=== PATIENT | male | born 1965 | race Caucasian/White ===

== ENCOUNTER 2020-11-10 14:55 | Emergency (ER) | payer BC ==
--- NOTE | 2020-11-10 15:02 | EDM.PDOC ---
ED HPI GENERAL MEDICAL PROBLEM - General Chief Complaint: Behavioral/Psych Stated Complaint: MENTAL HEALTH Time Seen by Provider: 11/10/20 14:56 Source of Information: Reports: Patient History Limitations: Reports: No Limitations - History of Present Illness INITIAL COMMENTS - FREE TEXT/NARRATIVE: HISTORY AND PHYSICAL: History of present illness: Patient is a 55-year-old male who presents emergency room today with concern of suicidal ideation/suicidal attempt with the plan. Patient states yesterday at 11 AM, he took "a large handful "of Ambien. Patient states that he fell asleep and he woke up multiple hours later. Patient states that he has continued to have suicidal ideation and has been working on a different plan. Patient states the day he was going to park his car in the garage and shut the garage door and keep the car running. Patient states he was in the process of getting this started when his son called him. Patient states that he broke down and asked his son for help. Patient states that his son brought him to his daughter's house who drove him to the emergency room after calling the suicide hotline. Patient states that he has been having suicidal ideation after he was let go from a job at the end of September. Patient states he feels worthless and a burden to his family as to he has no fpc saved and now is no longer making an income. Patient denies any history of suicidal ideation, anxiety, or depression and states he has never had any issues like this in his past. Patient states he has a history of type 2 diabetes but denies any other health history. Patient denies fever, chills, chest pain, shortness of breath, or cough. Denies headache, neck stiff ness, change in vision, syncope, or near syncope. Denies nausea, vomiting, abdominal pain, diarrhea, constipation, or dysuria. Has not noted any blood in urine or stool. Patient has been eating and drinking appropriately. Review of systems: As per history of present illness and below otherwise all systems reviewed and negative. Past medical history: As per history of present illness and as reviewed below otherwise noncontributory. Surgical history: As per history of present illness and as reviewed below otherwise noncontributory. Social history: See social history for further information Family history: As per history of present illness and as reviewed below otherwise noncontributory. Physical exam: General: Patient is alert, oriented, and in no acute distress. Patient sitting comfortably on exam table. Vitals stable and reviewed by me. HEENT: Atraumatic, normocephalic, pupils equal and reactive bilaterally, negative for conjunctival pallor or scleral icterus, mucous membranes moist, TMs normal bilaterally, throat clear, neck supple, nontender, trachea midline. No drooling or trismus noted. No meningeal signs. No hot potato voice noted. Lungs: Clear to auscultation, breath sounds equal bilaterally, chest nontender. Heart: S1S2, regular rate and rhythm without overt murmur Abdomen: Soft, nondistended, nontender. Negative for masses or hepatosplenomegaly. Negative for costovertebral tenderness. Pelvis: Stable nontender. Genitourinary: Deferred. Rectal: Deferred. Skin: Intact, warm, dry. No lesions or rashes noted. Extremities: Atraumatic, negative for cords or calf pain. Neurovascular unremarkable. Neuro: Awake, alert, oriented. Cranial nerves II through XII unremarkable. Cerebellum unremarkable. Motor and sensory unremarkable throughout. Exam nonfocal. Notes: Involuntary hold paperwork filled out upon arrival. [facility] does not have any beds available. Did call and speak to Dr. Oma Castillo, psychiatry at [facility] in [place], and thoroughly discussed patient's case. Accepting of transfer. EMS arranged. EMS is delayed until midnight. Diagnostics: CBC, CMP, UA, UDS, EKG, TSH, Mg, Salicylate, Ethanol, Acetaminophen, COVID Therapeutics: None Impression: Suicidal ideation with a plan Suicide attempt Plan: Transfer to Dr. Oma Castillo via EMS at [facility] Definitive disposition and diagnosis as appropriate pending reevaluation and review of above. - Related Data Allergies Allergy/AdvReac Type Severity Reaction Status Date / Time No Known Allergies Allergy Verified 11/10/20 15:27 Home Meds: Home Meds Insulin Aspart [NovoLOG] 1 dose SUBCUT ASDIRECTED 11/10/20 [History] Semaglutide [Ozempic] 1 dose SUBCUT ASDIRECTED 11/10/20 [History] ED ROS GENERAL - Review of Systems Review Of Systems: Comprehensive ROS is negative, except as noted in HPI. ED EXAM, GENERAL - Physical Exam Exam: See Below (see dictation) Course - Vital Signs Last Recorded V/S: Last Vital Signs Temp 96.9 F 11/10/20 22:50 Pulse 90 11/10/20 22:50 Resp 18 11/10/20 22:50 BP 145/69 H 11/10/20 22:50 Pulse Ox 96 11/10/20 22:50 - Orders/Labs/Meds Labs: Laboratory Tests 11/10/20 11/10/20 11/10/20 Range/Units 15:50 15:50 16:25 WBC 8.14 (4.0-11.0) K/uL RBC 4.64 (4.50-5.90) M/uL Hgb 15.0 (13.0-17.0) g/dL Hct 43.5 (38.0-50.0) % MCV 93.8 (80.0-98.0) fL MCH 32.3 H (27.0-32.0) pg MCHC 34.5 (31.0-37.0) g/dL RDW Std Deviation 42.6 (28.0-62.0) fl RDW Coeff of Lyric 13 (11.0-15.0) % Plt Count 228 (150-400) K/uL MPV 8.90 (7.40-12.00) fL Neut % (Auto) 62.8 (48.0-80.0) % Lymph % (Auto) 27.3 (16.0-40.0) % [place] % (Auto) 8.8 (0.0-15.0) % Eos % (Auto) 0.9 (0.0-7.0) % Baso % (Auto) 0.2 (0.0-1.5) % Neut # (Auto) 5.1 (1.4-5.7) K/uL Lymph # (Auto) 2.2 (0.6-2.4) K/uL [place] # (Auto) 0.7 (0.0-0.8) K/uL Eos # (Auto) 0.1 (0.0-0.7) K/uL Baso # (Auto) 0.0 (0.0-0.1) K/uL Nucleated RBC % 0.0 /100WBC Nucleated RBCs # 0 K/uL Sodium 139 (136-148) mmol/L Potassium 3.7 (3.5-5.1) mmol/L Chloride 102 (98-107) mmol/L Carbon Dioxide 20.0 L (21.0-32.0) mmol/L BUN 13 (7.0-18.0) mg/dL Creatinine 1.0 (0.8-1.3) mg/dL Est Cr Clr Drug Dosing 107.90 mL/min Estimated GFR (MDRD) > 60.0 ml/min Glucose 167 H (74-106) mg/dL Calcium 9.2 (8.5-10.1) mg/dL Magnesium 2.1 (1.8-2.4) mg/dL Total Bilirubin 0.6 (0.2-1.0) mg/dL AST 22 (15-37) IU/L ALT 26 (14-63) IU/L Alkaline Phosphatase 59 (46-116) U/L Total Protein 7.3 (6.4-8.2) g/dL Albumin 3.9 (3.4-5.0) g/dL Globulin 3.4 (2.6-4.0) g/dL Albumin/Globulin Ratio 1.1 (0.9-1.6) TSH 3rd Generation 0.74 (0.36-3.74) uIU/mL Urine Color YELLOW Urine Appearance HAZY Urine pH 5.5 (5.0-8.0) Ur Specific [place] >= 1.030 (1.001-1.035) Urine Protein NEGATIVE (NEGATIVE) mg/dL Urine Glucose (UA) NEGATIVE (NEGATIVE) mg/dL Urine Ketones 40 H (NEGATIVE) mg/dL Urine Occult Blood NEGATIVE (NEGATIVE) Urine Nitrite NEGATIVE (NEGATIVE) Urine Bilirubin MODERATE H (NEGATIVE) Urine Ictotest NEGATIVE Urine Urobilinogen 1.0 (<2.0) EU/dL Ur Leukocyte Esterase NEGATIVE (NEGATIVE) Urine RBC 0-2 (0-2/HPF) Urine WBC 0-2 (0-5/HPF) Ur Epithelial Cells FEW (NONE-FEW) Urine Bacteria 1+ H (NEGATIVE) Urine Mucus LIGHT (NONE-MOD) Salicylates 2.0 (0-20) mg/dL Urine Opiates Screen (NEGATIVE) Ur Oxycodone Screen (NEGATIVE) Urine Methadone Screen (NEGATIVE) Acetaminophen <2.0 ug/mL Ur Barbiturates Screen (NEGATIVE) Ur Phencyclidine Scrn (NEGATIVE) Ur Amphetamine Screen (NEGATIVE) U Methamphetamines Scrn (NEGATIVE) U Benzodiazepines Scrn (NEGATIVE) U Cocaine Metab Screen (NEGATIVE) U Marijuana (THC) Screen (NEGATIVE) Ethyl Alcohol 3 mg/dL Influenza Type A RNA (NEGATIVE) Influenza Type B RNA (NEGATIVE) SARS-CoV-2 RNA ([place]) (NEGATIVE) 11/10/20 11/10/20 Range/Units 16:25 16:40 WBC (4.0-11.0) K/uL RBC (4.50-5.90) M/uL Hgb (13.0-17.0) g/dL Hct (38.0-50.0) % MCV (80.0-98.0) fL MCH (27.0-32.0) pg MCHC (31.0-37.0) g/dL RDW Std Deviation (28.0-62.0) fl RDW Coeff of Lyric (11.0-15.0) % Plt Count (150-400) K/uL MPV (7.40-12.00) fL Neut % (Auto) (48.0-80.0) % Lymph % (Auto) (16.0-40.0) % [place] % (Auto) (0.0-15.0) % Eos % (Auto) (0.0-7.0) % Baso % (Auto) (0.0-1.5) % Neut # (Auto) (1.4-5.7) K/uL Lymph # (Auto) (0.6-2.4) K/uL [place] # (Auto) (0.0-0.8) K/uL Eos # (Auto) (0.0-0.7) K/uL Baso # (Auto) (0.0-0.1) K/uL Nucleated RBC % /100WBC Nucleated RBCs # K/uL Sodium (136-148) mmol/L Potassium (3.5-5.1) mmol/L Chloride (98-107) mmol/L Carbon Dioxide (21.0-32.0) mmol/L BUN (7.0-18.0) mg/dL Creatinine (0.8-1.3) mg/dL Est Cr Clr Drug Dosing mL/min Estimated GFR (MDRD) ml/min Glucose (74-106) mg/dL Calcium (8.5-10.1) mg/dL Magnesium (1.8-2.4) mg/dL Total Bilirubin (0.2-1.0) mg/dL AST (15-37) IU/L ALT (14-63) IU/L Alkaline Phosphatase (46-116) U/L Total Protein (6.4-8.2) g/dL Albumin (3.4-5.0) g/dL Globulin (2.6-4.0) g/dL Albumin/Globulin Ratio (0.9-1.6) TSH 3rd Generation (0.36-3.74) uIU/mL Urine Color Urine Appearance Urine pH (5.0-8.0) Ur Specific [place] (1.001-1.035) Urine Protein (NEGATIVE) mg/dL Urine Glucose (UA) (NEGATIVE) mg/dL Urine Ketones (NEGATIVE) mg/dL Urine Occult Blood (NEGATIVE) Urine Nitrite (NEGATIVE) Urine Bilirubin (NEGATIVE) Urine Ictotest Urine Urobilinogen (<2.0) EU/dL Ur Leukocyte Esterase (NEGATIVE) Urine RBC (0-2/HPF) Urine WBC (0-5/HPF) Ur Epithelial Cells (NONE-FEW) Urine Bacteria (NEGATIVE) Urine Mucus (NONE-MOD) Salicylates (0-20) mg/dL Urine Opiates Screen POSITIVE (NEGATIVE) Ur Oxycodone Screen NEGATIVE (NEGATIVE) Urine Methadone Screen NEGATIVE (NEGATIVE) Acetaminophen ug/mL Ur Barbiturates Screen NEGATIVE (NEGATIVE) Ur Phencyclidine Scrn NEGATIVE (NEGATIVE) Ur Amphetamine Screen NEGATIVE (NEGATIVE) U Methamphetamines Scrn NEGATIVE (NEGATIVE) U Benzodiazepines Scrn NEGATIVE (NEGATIVE) U Cocaine Metab Screen NEGATIVE (NEGATIVE) U Marijuana (THC) Screen NEGATIVE (NEGATIVE) Ethyl Alcohol mg/dL Influenza Type A RNA NEGATIVE (NEGATIVE) Influenza Type B RNA NEGATIVE (NEGATIVE) SARS-CoV-2 RNA ([place]) NEGATIVE (NEGATIVE) Departure - Departure Time of Disposition: 18:08 Disposition: DC/Tfer to Psych Hosp/Unit [address] Clinical Impression: Suicidal ideation, Suicide attempt - Discharge Information Referrals: Sumeet Toussaint MD [Primary Care Provider] - Forms: ED Department Discharge
--- NOTE | 2020-11-10 15:50 | PCM.SN.2 ---
#1 Interpretation EKG Date: 11/10/20 Time: 15:44 Rhythm: NSR Rate (Beats/Min): 91 [place]: Normal P-Wave: Present QRS: Normal ST-T: Normal QT: Normal ID/PQ Interval: 150 Comparison: NA - No Prior EKG EKG Interpretation Comments: non-ischemic EKG
[2020-11-10 16:33] LABS: ACETAMINOPHEN <2.0 ug/mL; BLOOD UREA NITROGEN,BUN 13 mg/dL (7.0-18.0); CHLORIDE,CL 102 mmol/L (98-107); GLUCOSE RANDOM 167 mg/dL (74-106); POTASSIUM,K 3.7 mmol/L (3.5-5.1); SODIUM,NA 139 mmol/L (136-148)
[2020-11-10 17:27] LABS: CORONAVIRUS COVID-19 NAA NEGATIVE (NEGATIVE); INFLUENZA A NAA NEGATIVE (NEGATIVE); INFLUENZA B NAA NEGATIVE (NEGATIVE)
== END 2020-11-10 23:30 ==
LOC: MW.ED 14:55
DX: T42.6X2A Poisoning by other antiepileptic and sedative-hypnotic drugs, intentional self-harm, initial encounter (principal); E11.9 Type 2 diabetes mellitus without complications; Z79.4 Long term (current) use of insulin; Z20.822 Contact with and (suspected) exposure to COVID-19
CPT/HCPCS: 0240U; 36415; 80053; 80143; 80179; 80305; 80307; 81001; 83735; 84443; 85025; 93005; 99285

== ENCOUNTER 2022-10-04 10:00 | Emergency (ER) | payer BC ==
[2022-10-04 11:20] LABS: CORONAVIRUS COVID-19 NAA NEGATIVE (NEGATIVE); INFLUENZA A NAA NEGATIVE (NEGATIVE); INFLUENZA B NAA NEGATIVE (NEGATIVE)
[2022-10-04 11:28] LABS: ACETAMINOPHEN <2.0 ug/mL; BLOOD UREA NITROGEN,BUN 18 mg/dL (7.0-18.0); CARBON DIOXIDE,CO2 20.3 mmol/L (21.0-32.0); CHLORIDE,CL 106 mmol/L (98-107); GLUCOSE RANDOM 294 mg/dL (74-106); SODIUM,NA 138 mmol/L (136-148)
[2022-10-04 11:39] LABS: ESTIMATED GFR 103 mL/min (>60)
== END 2022-10-04 18:12 | disposition home or self-care (01) ==
LOC: MW.ED 10:00
DX: F32.A Depression, unspecified (principal); E11.9 Type 2 diabetes mellitus without complications; I10 Essential (primary) hypertension; Z20.822 Contact with and (suspected) exposure to COVID-19; Z79.899 Other long term (current) drug therapy; Z79.4 Long term (current) use of insulin
CPT/HCPCS: 0240U; 36415; 80053; 80143; 80179; 80305; 80307; 81001; 83735; 84443; 85025; 93005; 99284

== ENCOUNTER 2023-02-07 15:10 | Observation (INO) | payer BC ==
[2023-02-07] MEDS ORDERED: Sodium Chloride 0.9% 1,000 ML IV ONE ×2 (16:51→21:39)
[2023-02-07 17:33] LABS: POTASSIUM,K 3.7 mmol/L (3.5-5.1)
[2023-02-07] MEDS ORDERED: Potassium Chloride 20 MEQ in Premix Bag 1 BAG IV ONE (17:43)
[2023-02-07] MEDS ORDERED: Insulin Regular in 0.9 % NACL 100 ML IV SCH (17:45)
[2023-02-07] MEDS ORDERED: Iopamidol 755 MG/ML 500 ML Multipack Bottle IVPUSH ONE (18:02)
[2023-02-07 18:07] LABS: HEMOGLOBIN A1C 13.3 %
[2023-02-07 22:30] LABS: CARBON DIOXIDE,CO2 12.3 mmol/L (21.0-32.0)
[2023-02-08 01:48] LABS: CARBON DIOXIDE,CO2 14.8 mmol/L (21.0-32.0); POTASSIUM,K 2.9 mmol/L (3.5-5.1)
[2023-02-08] MEDS ORDERED: Dextrose 5%-Lactated Ringers 1,000 ML IV SCH (02:45)
[2023-02-08] MEDS ORDERED: Potassium Chloride 20 MEQ in Premix Bag 1 BAG IV ONE ×3 (03:00→17:30)
[2023-02-08 04:38] LABS: CARBON DIOXIDE,CO2 15.7 mmol/L (21.0-32.0); POTASSIUM,K 2.8 mmol/L (3.5-5.1)
[2023-02-08] MEDS: Potassium Chloride 100 ML IV SCH ×2 (06:06→10:33)
[2023-02-08 08:55] LABS: CARBON DIOXIDE,CO2 14.7 mmol/L (21.0-32.0); POTASSIUM,K 3.7 mmol/L (3.5-5.1)
[2023-02-08 14:00] LABS: CARBON DIOXIDE,CO2 18.5 mmol/L (21.0-32.0); POTASSIUM,K 3.1 mmol/L (3.5-5.1)
[2023-02-08] MEDS ORDERED: Insulin Glargine,Hum.Rec.Anlog 100 UNIT/ML 3 ML Pen SUBCUT STA (14:39)
[2023-02-08] MEDS ORDERED: Insulin Aspart 100 Units/ML 3 ML Pen SUBCUT STA (14:39)
[2023-02-08] MEDS ORDERED: Sodium Chloride 0.9% 1,000 ML IV ONE ×2 (14:43→16:00)
[2023-02-08] MEDS ORDERED: 50% Dextrose in Water 50 ML Syringe IVPUSH PRN (15:46)
[2023-02-08] MEDS ORDERED: Glucagon,Human Recombinant 1 MG Vial IM PRN (15:46)
[2023-02-08] MEDS ORDERED: Potassium Chloride 20 MEQ Tab.ER PO ONE (16:00)
[2023-02-08] MEDS ORDERED: Acetaminophen 325 MG Tab PO PRN (16:00)
[2023-02-08] MEDS ORDERED: Ondansetron 4 MG/2 ML SDV IVPUSH PRN (16:00)
[2023-02-08] MEDS ORDERED: Sodium Chloride 0.9% 2.5 ML Syringe FLUSH PRN (16:00)
[2023-02-08] MEDS ORDERED: Sodium Chloride 0.9% 10 ML Syringe FLUSH PRN (16:00)
[2023-02-08] MEDS: Insulin Aspart 100 Units/ML 3 ML Pen SUBCUT SCH ×2 (16:59)
[2023-02-08 18:22] LABS: CARBON DIOXIDE,CO2 16.8 mmol/L (21.0-32.0); POTASSIUM,K 3.8 mmol/L (3.5-5.1)
[2023-02-08] MEDS: traZODone 50 MG Tab PO SCH (20:55)
[2023-02-08] MEDS: Docusate Sodium 100 MG Cap PO SCH (20:56)
[2023-02-08] MEDS: Rosuvastatin 10 MG Tab PO SCH (20:56)
[2023-02-08] MEDS ORDERED: Insulin Glargine,Hum.Rec.Anlog 100 UNIT/ML 3 ML Pen SUBCUT SCH (21:00)
[2023-02-09 06:31] LABS: CARBON DIOXIDE,CO2 17.5 mmol/L (21.0-32.0); POTASSIUM,K 3.6 mmol/L (3.5-5.1)
[2023-02-09] MEDS ORDERED: Insulin Aspart 100 Units/ML 3 ML Pen SUBCUT SCH (08:00)
[2023-02-09] MEDS: Docusate Sodium 100 MG Cap PO SCH ×2 (08:15→21:12)
[2023-02-09] MEDS: Lisinopril 10 MG Tab PO SCH (08:15)
[2023-02-09] MEDS: Fluticasone NASAL Spray 16 GM Bottle NASBOTH SCH (08:18)
[2023-02-09] MEDS: ARIPIPRAZOLE 2 MG PO SCH (08:20)
[2023-02-09] MEDS: Insulin Aspart 100 Units/ML 3 ML Pen SUBCUT SCH ×6 (08:20→17:18)
[2023-02-09] MEDS ORDERED: Potassium Phosphates 30 MMOLE in Sodium Chloride 0.9% 500 ML IV ONE (08:30)
[2023-02-09] MEDS: Sodium Chloride 0.9% 1,000 ML IV SCH ×2 (09:52→17:20)
[2023-02-09 11:56] LABS: CARBON DIOXIDE,CO2 17.1 mmol/L (21.0-32.0); POTASSIUM,K 3.7 mmol/L (3.5-5.1)
[2023-02-09 18:35] LABS: CARBON DIOXIDE,CO2 20.3 mmol/L (21.0-32.0); POTASSIUM,K 3.5 mmol/L (3.5-5.1)
[2023-02-09] MEDS ORDERED: Insulin Glargine,Hum.Rec.Anlog 100 UNIT/ML 3 ML Pen SUBCUT SCH (21:00)
[2023-02-09] MEDS: Rosuvastatin 10 MG Tab PO SCH (21:12)
[2023-02-09] MEDS: traZODone 50 MG Tab PO SCH (21:12)
[2023-02-10] MEDS: Sodium Chloride 0.9% 1,000 ML IV SCH (01:17)
[2023-02-10] MEDS: Insulin Aspart 100 Units/ML 3 ML Pen SUBCUT SCH ×2 (07:55→07:56)
[2023-02-10] MEDS: Lisinopril 10 MG Tab PO SCH (08:17)
[2023-02-10] MEDS: Fluticasone NASAL Spray 16 GM Bottle NASBOTH SCH (08:17)
[2023-02-10] MEDS: Docusate Sodium 100 MG Cap PO SCH (08:17)
[2023-02-10] MEDS: ARIPIPRAZOLE 2 MG PO SCH (08:20)
[2023-02-10 09:09] LABS: CARBON DIOXIDE,CO2 20.1 mmol/L (21.0-32.0); POTASSIUM,K 3.2 mmol/L (3.5-5.1)
[2023-02-10] MEDS ORDERED: Potassium Chloride 20 MEQ Tab.ER PO ONE (09:23)
== END 2023-02-10 11:20 | disposition home or self-care (01) ==
LOC: MW.ED 15:10 → UNDOADMIN 02-08 15:16 → MW.MS 02-08 15:16
PROVIDERS: ADMIT Hospitalist; ATTEND Hospitalist
DX: E11.10 Type 2 diabetes mellitus with ketoacidosis without coma (principal); E11.65 Type 2 diabetes mellitus with hyperglycemia; E78.2 Mixed hyperlipidemia; E66.01 Morbid (severe) obesity due to excess calories; K43.6 Other and unspecified ventral hernia with obstruction, without gangrene; I10 Essential (primary) hypertension; E78.00 Pure hypercholesterolemia, unspecified; F32.9 Major depressive disorder, single episode, unspecified; Z68.35 Body mass index [BMI] 35.0-35.9, adult; Z91.148 Patient's other noncompliance with medication regimen for other reason; Z79.4 Long term (current) use of insulin; Z79.899 Other long term (current) drug therapy; Z98.890 Other specified postprocedural states
CPT/HCPCS: 36415; 74176; 74177; 80048; 80053; 82009; 82803; 82947; 83036; 83605; 83690; 83735; 84100; 85025; 87040; 96361; 96365; 96366; 96376; 99285; A9270; G0378; J1815; J3480; J7030; J7040; J7121; Q9967; 99222; 99232; 99238; J3490

== ENCOUNTER 2023-11-24 13:56 | Inpatient (IN) | payer SELFPAY ==
[2023-11-24] MEDS: Gadobenate Dimeglumine 529 MG/ML 20 ML SDV IVPUSH STA (16:40)
[2023-11-24 18:01] LABS: BASOPHILS ABSOLUTE AUTO 0.01 K/uL (0.00-0.20); BASOPHILS PERCENT AUTO 0.1 % (0.0-1.0); HEMATOCRIT 37.4 % (42.0-52.0); HEMOGLOBIN 12.9 g/dL (14.0-18.0); IMMATURE GRAN ABSOLUTE AUTO 0.04 K/uL (0.00-0.05); IMMATURE GRAN PERCENT AUTO 0.4 % (0.0-0.4); LYMPHOCYTES ABSOLUTE AUTO 2.57 K/uL (1.00-4.80); LYMPHOCYTES PERCENT AUTO 26.8 % (24.0-44.0); MEAN CORPUSCULAR HEMOGLOBIN 31.5 pg (28.0-32.0); MEAN CORPUSCULAR HGB CONC 34.5 g/dL (32.0-36.0); MEAN CORPUSCULAR VOLUME 91.2 fL (83.0-99.0); MEAN PLATELET VOLUME 8.5 fL (9.4-12.4); MONOCYTES ABSOLUTE AUTO 0.74 K/uL (0.00-0.80); MONOCYTES PERCENT AUTO 7.7 % (0.0-8.0); NEUTROPHILS ABSOLUTE AUTO 6.13 K/uL (1.80-7.70); PLATELET COUNT,PLT 298 K/uL (150-400); WHITE BLOOD CELL COUNT,WBC 9.59 K/uL (3.9-11.3)
[2023-11-24] MEDS: Sodium Chloride 0.9% 1,000 ML IV STA (18:18)
[2023-11-24] MEDS: VANCOmycin 2 GM/400 ML 2 GM in Premix Bag 1 BAG IV ONE (18:18)
[2023-11-24] MEDS: Cefepime 2 GM in Sodium Chloride 0.9% 50 ML IV STA (18:18)
[2023-11-24 18:30] LABS: A/G RATIO 0.6 (0.9-1.6); ALBUMIN 2.8 g/dL (3.4-5.0); BILIRUBIN TOTAL 0.4 mg/dL (0.2-1.0); CALCIUM 8.8 mg/dL (8.5-10.1); CARBON DIOXIDE,CO2 25.9 mmol/L (21.0-32.0); CREATININE 0.9 mg/dL (0.8-1.3); EST CRCL DRUG DOSING (CG) 115.66 mL/min; POTASSIUM,K 3.7 mmol/L (3.5-5.1); PROTEIN TOTAL,TP 7.3 g/dL (6.4-8.2)
[2023-11-24] MEDS ORDERED: Glucagon,Human Recombinant 1 MG Vial IM PRN (21:06)
[2023-11-24] MEDS ORDERED: 50% Dextrose in Water 50 ML Syringe IVPUSH PRN (21:06)
[2023-11-24] MEDS: Enoxaparin 40 MG/0.4 ML Syringe SUBCUT SCH (22:08)
[2023-11-25] MEDS: Insulin Glargine,Hum.Rec.Anlog 100 UNIT/ML 3 ML Pen SUBCUT SCH ×2 (01:05→20:37)
[2023-11-25] MEDS: Cefepime 2 GM in Sodium Chloride 0.9% 50 ML IV SCH (03:38)
[2023-11-25 05:41] LABS: BASOPHILS ABSOLUTE AUTO 0.02 K/uL (0.00-0.20); BASOPHILS PERCENT AUTO 0.2 % (0.0-1.0); EOSINOPHILS PERCENT AUTO 1.1 % (0.0-6.0); HEMATOCRIT 34.7 % (42.0-52.0); IMMATURE GRAN ABSOLUTE AUTO 0.03 K/uL (0.00-0.05); IMMATURE GRAN PERCENT AUTO 0.3 % (0.0-0.4); LYMPHOCYTES ABSOLUTE AUTO 1.89 K/uL (1.00-4.80); MEAN CORPUSCULAR HEMOGLOBIN 31.3 pg (28.0-32.0); MEAN CORPUSCULAR HGB CONC 34.6 g/dL (32.0-36.0); MEAN CORPUSCULAR VOLUME 90.6 fL (83.0-99.0); MEAN PLATELET VOLUME 8.5 fL (9.4-12.4); MONOCYTES ABSOLUTE AUTO 0.79 K/uL (0.00-0.80); MONOCYTES PERCENT AUTO 8.8 % (0.0-8.0); NEUTROPHILS ABSOLUTE AUTO 6.16 K/uL (1.80-7.70); NEUTROPHILS PERCENT AUTO 68.6 % (41.0-71.0); PLATELET COUNT,PLT 280 K/uL (150-400); RED BLOOD CELL COUNT 3.83 M/uL (4.52-5.90); WHITE BLOOD CELL COUNT,WBC 8.99 K/uL (3.9-11.3)
[2023-11-25 06:05] LABS: CALCIUM 8.3 mg/dL (8.5-10.1); CARBON DIOXIDE,CO2 23.1 mmol/L (21.0-32.0); CREATININE 0.8 mg/dL (0.8-1.3); EST CRCL DRUG DOSING (CG) 130.12 mL/min; POTASSIUM,K 3.8 mmol/L (3.5-5.1)
[2023-11-25] MEDS: VANCOmycin 2 GM/400 ML 400 ML IV ONE (06:13)
[2023-11-25] MEDS: Insulin Aspart 100 Units/ML 3 ML Pen SUBCUT SCH ×2 (08:07→08:09)
[2023-11-25] MEDS: Lisinopril 10 MG Tab PO SCH (09:55)
[2023-11-25] MEDS: ARIPIPRAZOLE 2 MG PO SCH (09:56)
[2023-11-25] MEDS: Insulin Aspart 100 Units/ML 3 ML Pen SUBCUT ONE (12:01)
[2023-11-25] MEDS: Rosuvastatin 10 MG Tab PO SCH (20:31)
[2023-11-26 05:57] LABS: BASOPHILS ABSOLUTE AUTO 0.03 K/uL (0.00-0.20); BASOPHILS PERCENT AUTO 0.4 % (0.0-1.0); EOSINOPHILS ABSOLUTE AUTO 0.16 K/uL (0.00-0.45); EOSINOPHILS PERCENT AUTO 2.1 % (0.0-6.0); HEMATOCRIT 34.3 % (42.0-52.0); HEMOGLOBIN 11.9 g/dL (14.0-18.0); IMMATURE GRAN ABSOLUTE AUTO 0.04 K/uL (0.00-0.05); IMMATURE GRAN PERCENT AUTO 0.5 % (0.0-0.4); LYMPHOCYTES ABSOLUTE AUTO 2.06 K/uL (1.00-4.80); LYMPHOCYTES PERCENT AUTO 27.1 % (24.0-44.0); MEAN CORPUSCULAR HEMOGLOBIN 31.5 pg (28.0-32.0); MEAN CORPUSCULAR HGB CONC 34.7 g/dL (32.0-36.0); MEAN CORPUSCULAR VOLUME 90.7 fL (83.0-99.0); MEAN PLATELET VOLUME 8.6 fL (9.4-12.4); MONOCYTES ABSOLUTE AUTO 0.56 K/uL (0.00-0.80); MONOCYTES PERCENT AUTO 7.4 % (0.0-8.0); NEUTROPHILS ABSOLUTE AUTO 4.76 K/uL (1.80-7.70); NEUTROPHILS PERCENT AUTO 62.5 % (41.0-71.0); PLATELET COUNT,PLT 266 K/uL (150-400); RED BLOOD CELL COUNT 3.78 M/uL (4.52-5.90); WHITE BLOOD CELL COUNT,WBC 7.61 K/uL (3.9-11.3)
[2023-11-26 06:19] LABS: CALCIUM 8.5 mg/dL (8.5-10.1); CARBON DIOXIDE,CO2 23.9 mmol/L (21.0-32.0); CREATININE 0.8 mg/dL (0.8-1.3); EST CRCL DRUG DOSING (CG) 130.12 mL/min; MAGNESIUM 1.8 mg/dL (1.8-2.4); POTASSIUM,K 3.9 mmol/L (3.5-5.1)
[2023-11-26] MEDS ORDERED: Bupivacaine 0.5% 30 ML SDV ONE (07:22)
[2023-11-26] MEDS ORDERED: fentaNYL 100 MCG/2 ML SDV ONE (07:30)
[2023-11-26] MEDS ORDERED: Ketamine 500 mg/10 ML MDV ONE (07:30)
[2023-11-26] MEDS ORDERED: propofoL 50 ML ONE ×2 (07:30→08:27)
[2023-11-26] MEDS ORDERED: dexmedeTOMIDine HCl 200 MCG/2 ML SDV ONE (07:30)
[2023-11-26] MEDS ORDERED: Propofol 200 MG/20 ML SDV ONE ×2 (08:55→09:08)
[2023-11-26] MEDS: HYDROmorphone 1 MG/ML Syringe IVPUSH ONE (09:52)
[2023-11-26] MEDS: HYDROmorphone 1 MG/ML Syringe ONE (09:55)
[2023-11-26] MEDS: VANCOmycin 1.5 GM/300 ML 1.5 GM in Premix Bag 1 BAG IV SCH (15:20)
[2023-11-26] MEDS: oxyCODONE 5 MG Tab PO PRN (17:01)
[2023-11-26] MEDS: Insulin Glargine,Hum.Rec.Anlog 100 UNIT/ML 3 ML Pen SUBCUT SCH (21:23)
[2023-11-27] MEDS: Enoxaparin 40 MG/0.4 ML Syringe SUBCUT SCH (08:34)
[2023-11-27] MEDS: Acetaminophen 325 MG Tab PO PRN (12:17)
[2023-11-27 13:34] LABS: BASOPHILS ABSOLUTE AUTO 0.02 K/uL (0.00-0.20); BASOPHILS PERCENT AUTO 0.3 % (0.0-1.0); EOSINOPHILS ABSOLUTE AUTO 0.15 K/uL (0.00-0.45); EOSINOPHILS PERCENT AUTO 2.1 % (0.0-6.0); HEMATOCRIT 33.3 % (42.0-52.0); HEMOGLOBIN 11.5 g/dL (14.0-18.0); IMMATURE GRAN ABSOLUTE AUTO 0.03 K/uL (0.00-0.05); IMMATURE GRAN PERCENT AUTO 0.4 % (0.0-0.4); LYMPHOCYTES ABSOLUTE AUTO 1.67 K/uL (1.00-4.80); LYMPHOCYTES PERCENT AUTO 23.1 % (24.0-44.0); MEAN CORPUSCULAR HEMOGLOBIN 31.4 pg (28.0-32.0); MEAN CORPUSCULAR HGB CONC 34.5 g/dL (32.0-36.0); MEAN PLATELET VOLUME 8.5 fL (9.4-12.4); MONOCYTES ABSOLUTE AUTO 0.56 K/uL (0.00-0.80); MONOCYTES PERCENT AUTO 7.8 % (0.0-8.0); NEUTROPHILS ABSOLUTE AUTO 4.79 K/uL (1.80-7.70); NEUTROPHILS PERCENT AUTO 66.3 % (41.0-71.0); PLATELET COUNT,PLT 259 K/uL (150-400); RED BLOOD CELL COUNT 3.66 M/uL (4.52-5.90); WHITE BLOOD CELL COUNT,WBC 7.22 K/uL (3.9-11.3)
[2023-11-27 13:48] LABS: CALCIUM 8.3 mg/dL (8.5-10.1); CARBON DIOXIDE,CO2 26.8 mmol/L (21.0-32.0); CREATININE 0.9 mg/dL (0.8-1.3); EST CRCL DRUG DOSING (CG) 115.66 mL/min; POTASSIUM,K 4.4 mmol/L (3.5-5.1)
[2023-11-28 06:10] LABS: BASOPHILS ABSOLUTE AUTO 0.02 K/uL (0.00-0.20); BASOPHILS PERCENT AUTO 0.2 % (0.0-1.0); EOSINOPHILS ABSOLUTE AUTO 0.19 K/uL (0.00-0.45); EOSINOPHILS PERCENT AUTO 2.2 % (0.0-6.0); HEMATOCRIT 34.9 % (42.0-52.0); HEMOGLOBIN 12.1 g/dL (14.0-18.0); IMMATURE GRAN ABSOLUTE AUTO 0.03 K/uL (0.00-0.05); IMMATURE GRAN PERCENT AUTO 0.3 % (0.0-0.4); LYMPHOCYTES ABSOLUTE AUTO 2.17 K/uL (1.00-4.80); LYMPHOCYTES PERCENT AUTO 24.7 % (24.0-44.0); MEAN CORPUSCULAR HEMOGLOBIN 31.5 pg (28.0-32.0); MEAN CORPUSCULAR HGB CONC 34.7 g/dL (32.0-36.0); MEAN CORPUSCULAR VOLUME 90.9 fL (83.0-99.0); MEAN PLATELET VOLUME 8.7 fL (9.4-12.4); MONOCYTES ABSOLUTE AUTO 0.68 K/uL (0.00-0.80); MONOCYTES PERCENT AUTO 7.7 % (0.0-8.0); NEUTROPHILS ABSOLUTE AUTO 5.71 K/uL (1.80-7.70); NEUTROPHILS PERCENT AUTO 64.9 % (41.0-71.0); PLATELET COUNT,PLT 276 K/uL (150-400); RED BLOOD CELL COUNT 3.84 M/uL (4.52-5.90)
[2023-11-28 06:25] LABS: CALCIUM 8.4 mg/dL (8.5-10.1); CARBON DIOXIDE,CO2 25.1 mmol/L (21.0-32.0); CREATININE 0.8 mg/dL (0.8-1.3); EST CRCL DRUG DOSING (CG) 130.12 mL/min; POTASSIUM,K 3.9 mmol/L (3.5-5.1)
[2023-11-29 06:16] LABS: BASOPHILS ABSOLUTE AUTO 0.03 K/uL (0.00-0.20); BASOPHILS PERCENT AUTO 0.4 % (0.0-1.0); EOSINOPHILS ABSOLUTE AUTO 0.19 K/uL (0.00-0.45); EOSINOPHILS PERCENT AUTO 2.5 % (0.0-6.0); HEMATOCRIT 35.4 % (42.0-52.0); IMMATURE GRAN ABSOLUTE AUTO 0.04 K/uL (0.00-0.05); IMMATURE GRAN PERCENT AUTO 0.5 % (0.0-0.4); LYMPHOCYTES ABSOLUTE AUTO 2.02 K/uL (1.00-4.80); LYMPHOCYTES PERCENT AUTO 26.5 % (24.0-44.0); MEAN CORPUSCULAR HEMOGLOBIN 31.3 pg (28.0-32.0); MEAN CORPUSCULAR HGB CONC 33.9 g/dL (32.0-36.0); MEAN CORPUSCULAR VOLUME 92.2 fL (83.0-99.0); MEAN PLATELET VOLUME 8.5 fL (9.4-12.4); MONOCYTES ABSOLUTE AUTO 0.69 K/uL (0.00-0.80); MONOCYTES PERCENT AUTO 9.1 % (0.0-8.0); NEUTROPHILS ABSOLUTE AUTO 4.65 K/uL (1.80-7.70); PLATELET COUNT,PLT 267 K/uL (150-400); RED BLOOD CELL COUNT 3.84 M/uL (4.52-5.90); WHITE BLOOD CELL COUNT,WBC 7.62 K/uL (3.9-11.3)
[2023-11-29 06:37] LABS: CALCIUM 8.7 mg/dL (8.5-10.1); CARBON DIOXIDE,CO2 26.4 mmol/L (21.0-32.0); CREATININE 0.7 mg/dL (0.8-1.3); EST CRCL DRUG DOSING (CG) 148.71 mL/min; MAGNESIUM 1.8 mg/dL (1.8-2.4); POTASSIUM,K 3.9 mmol/L (3.5-5.1)
== END 2023-11-29 13:00 | disposition home or self-care (01) | DRG 617 ==
LOC: MW.ED 13:56 → MW.MS 19:10
PROVIDERS: ADMIT Internal Medicine; ATTEND Internal Medicine
PROC: 0Y6Q0Z1 Detachment at Left 1st Toe, High, Open Approach (ICD-10-PCS; principal; 2023-11-26 08:00)
DX: E11.69 Type 2 diabetes mellitus with other specified complication (principal); M86.8X7 Other osteomyelitis, ankle and foot; E11.621 Type 2 diabetes mellitus with foot ulcer; L97.529 Non-pressure chronic ulcer of other part of left foot with unspecified severity; F32.A Depression, unspecified; E78.2 Mixed hyperlipidemia; I10 Essential (primary) hypertension; E11.10 Type 2 diabetes mellitus with ketoacidosis without coma; E66.01 Morbid (severe) obesity due to excess calories; Z68.35 Body mass index [BMI] 35.0-35.9, adult; Z79.4 Long term (current) use of insulin; Z89.422 Acquired absence of other left toe(s); Z86.16 Personal history of COVID-19
CPT/HCPCS: 36415; 73630-26-LT; 73630-LT; 73720-26-LT; 73720-LT; 76000; 76000-26; 80048; 80053; 80202; 82947; 83605; 83735; 85025; 85652; 87040; 87070; 87075; 87077; 87186; 87205; 96365; 96367; 96375; 99284; 99284-25; A9270-GY; A9577; J0665; J0692; J1170; J1650; J1815-GY; J2704; J3010; J3370; J3490; J7030; J7050

== ENCOUNTER 2024-01-26 06:34 | Day surgery (SDC) | payer BC ==
[2024-01-26] MEDS ORDERED: Bupivacaine 0.5% 30 ML SDV ONE (07:15)
[2024-01-26] MEDS ORDERED: Lidocaine 1% 50 ML MDV ONE (07:15)
[2024-01-26] MEDS ORDERED: fentaNYL 100 MCG/2 ML SDV ONE (07:45)
[2024-01-26] MEDS ORDERED: dexmedeTOMIDine HCl 200 MCG/2 ML SDV ONE (07:54)
[2024-01-26] MEDS ORDERED: Ondansetron 4 MG/2 ML SDV ONE (07:54)
[2024-01-26] MEDS ORDERED: Water For Injection, Sterile 20 ML ONE (07:55)
[2024-01-26] MEDS ORDERED: ceFAZolin 2 GM in Sodium Chloride 0.9% 50 ML IV ONE (08:00)
[2024-01-26] MEDS: Lactated Ringers 1,000 ML IV SCH (08:02)
[2024-01-26] MEDS ORDERED: Midazolam 1 MG/ML 2 ML SDV ONE (08:22)
[2024-01-26] MEDS ORDERED: Ketamine HCL/NACL, ISO-OSM 50 MG/5 ML Syringe ONE (08:22)
[2024-01-26] MEDS ORDERED: ceFAZolin 1 GM Vial ONE (08:27)
[2024-01-26] MEDS ORDERED: ceFAZolin 2 GM Vial ONE (08:27)
[2024-01-26] MEDS ORDERED: Ketorolac 30 MG/ML SDV ONE (09:04)
== END 2024-01-26 11:20 | disposition home or self-care (01) ==
LOC: MW.SDS 06:34
PROVIDERS: ATTEND Podiatrist Foot & Ankle Surgery
DX: M86.8X8 Other osteomyelitis, other site (principal); I10 Essential (primary) hypertension; E78.00 Pure hypercholesterolemia, unspecified; E11.42 Type 2 diabetes mellitus with diabetic polyneuropathy; Z79.4 Long term (current) use of insulin; Z79.85 Long-term (current) use of injectable non-insulin antidiabetic drugs; Z79.899 Other long term (current) drug therapy
CPT/HCPCS: 28820; 76000; 82947; 87070; 87075; 87205; J0131; J0665; J0690; J1885; J2001; J2250; J2405; J3010; J7120; 01480; J3490